=== PATIENT | male | born 1995 | race Caucasian/White ===

== ENCOUNTER 2018-04-14 13:21 | Emergency (ER) | payer BC ==
[2018-04-14 13:42] VITALS: BP 134/84
--- NOTE | 2018-04-14 13:50 | UC ---
Lower Extremity/Ankle HPI - HPI Summary HPI Summary: 22-year-old male comes in to clinic today with a chief complaint of bilateral great toe swelling pain and drainage. He's been having some problems with his great toes and ingrown toenails for a long time. Last night he dugout part of his toenail that was stuck underneath some tissue. No fevers or chills feels well otherwise. No known history of MRSA. - History of Current Complaint Chief Complaint: UCLowerExtremity Stated Complaint: RED SWOLLEN TOENAIL Time Seen by Provider: 04/14/18 13:39 Pain Intensity: 4 - Allergies/Home Medications Allergies/Adverse Reactions: Allergies Allergy/AdvReac Type Severity Reaction Status Date / Time No Known Allergies Allergy Verified 04/14/18 13:42 PMH/Surg Hx/FS Hx/Imm Hx Previously Healthy: Yes - Surgical History Surgical History: None - Family History Known Family History: Negative: Diabetes - Social History Alcohol Use: Occasionally Substance Use Type: None Smoking Status (MU): Never Smoked Tobacco Type: Smokeless Tobacco Review of Systems All Other Systems Reviewed And Are Negative: Yes Constitutional: Positive: Negative Skin: Positive: Other - SEE HPI Eyes: Positive: Negative ENT: Positive: Negative Respiratory: Positive: Negative Cardiovascular: Positive: Negative Gastrointestinal: Positive: Negative Motor: Positive: Negative Neurovascular: Positive: Negative Musculoskeletal: Positive: Other: - SEE HPI Neurological: Positive: Negative Psychological: Positive: Negative Is Patient Immunocompromised?: No Physical Exam Triage Information Reviewed: Yes Appearance: Well-Appearing, No Pain Distress, Well-Nourished Vital Signs: Initial Vital Signs Temp 98.6 F 04/14/18 13:39 Pulse 81 04/14/18 13:39 Resp 20 04/14/18 13:39 BP 134/84 04/14/18 13:39 Pulse Ox 99 04/14/18 13:39 Vital Signs Reviewed: Yes Eye Exam: Normal Eyes: Positive: Conjunctiva Clear Neck exam: Normal Neck: Positive: Supple Respiratory: Positive: No respiratory distress Musculoskeletal: Positive: Other: - Both great toes have ingrown toenails on the lateral aspect. There is some drainage and erythema. No streaking. Normal capillary refill. Neurological Exam: Normal Neurological: Positive: Alert, Muscle Tone Normal Psychological Exam: Normal Psychological: Positive: Age Appropriate Behavior Skin: Positive: Other - Both great toes have ingrown toenails on the lateral aspect. There is some drainage and erythema. No streaking. Normal capillary refill. Lower Extremity Course/Dx - Course Course Of Treatment: We will treat with Keflex and recommended soaking his great toes and following up with curriculum coach. - Differential Dx/Diagnosis Provider Diagnoses: INGROWN GREAT TOENAILS WITH PARONYCHIA Discharge - Sign-Out/Discharge Documenting (check all that apply): Patient Departure All imaging exams completed and their final reports reviewed: No Studies - Discharge Plan Condition: Stable Disposition: HOME Prescriptions: Cephalexin CAP* [Keflex CAP*] 500 mg PO QID #40 cap Patient Education Materials: Paronychia (ED), Ingrown Nail (ED) Referrals: [facility] [Outside] Simi Franco DPM [Doctor of Podiatric Medicine] - Additional Instructions: FOLLOW UP WITH YOUR PODIATRY. GET RECHECKED FOR ANY WORSENING OF YOUR CONDITION OR QUESTIONS OR CONCERNS. - Billing Disposition and Condition Condition: STABLE Disposition: Home
== END 2018-04-14 13:56 | disposition home or self-care (01) ==
LOC: UCEAST 13:21
DX: L60.0 Ingrowing nail (principal); L03.032 Cellulitis of left toe; L03.031 Cellulitis of right toe
CPT/HCPCS: 99201; G0463